=== PATIENT | male | born 1965 | race Caucasian/White ===

== ENCOUNTER → 2017-01-25 | Outpatient (CLI) | payer BC, OTHER ==
[~2017-01-25] MED LIST: IMITREX 25 MG T25 M1 PO; NORCO 5-325 TA1 EACH PO; PEPCID20 MG PO
== END ==
LOC: MRI 08:23
DX: M47.892 Other spondylosis, cervical region (principal)

== ENCOUNTER → 2017-02-14 | Outpatient (CLI) | payer BC, OTHER | LOC: RAD 11:12 | DX: M47.892 Other spondylosis, cervical region (principal); M25.78 Osteophyte, vertebrae ==